=== PATIENT | female | born 1930 | race Caucasian/White ===

== ENCOUNTER 2017-11-15 10:16 | Observation (INO) | payer MEDICARE ==
[2017-11-15] MEDS ORDERED: cloNIDine 0.1 MG TAB ONE (10:42)
[2017-11-15 11:01] LABS: #Eosinphils 0.1 thou/uL (0.0-0.7); #Lymphocytes 1.5 thou/uL (1.20-3.40); #Monocytes 0.5 thou/uL (0.11-0.59); #Neutrophils 4.1 thou/uL (1.40-6.50); %Basophils 0.3 % (0.0-1.0); %Eosinophils 1.7 % (0.0-10.0); %Lymphocytes 24.4 % (21.0-51.0); %Monocytes 7.9 % (0.0-10.0); %Neutrophils 65.8 % (42.0-75.0); Hemoglobin 13.3 g/dL (12.0-16.0); Mean Corpuscular Hemoglobin 30.3 pg (27.0-31.0); Mean Corpuscular Volume 89.1 fl (81.0-99.0); Mean Platelet Volume 8.6 fL (7.4-10.4); Platelet Count 141 thou/uL (130-400); RBC Distribution Width 11.8 % (11.5-14.5); Red Blood Cell (RBC) Count 4.39 mill/uL (4.20-5.40); White Blood Cell (WBC) Count 6.2 thou/uL (4.8-10.8)
--- NOTE | 2017-11-15 11:02 | CT ---
CT HEAD NONCONTRAST: History Altered mental status. Vision abnormality. COMPARISON: 10/18/15. FINDINGS: There is no evidence of acute intracranial hemorrhage or infarct. Mild chronic ischemic small vessel disease is apparent within the periventricular white matter of each cerebral hemisphere. No mass ef fect or shift of midline structures. Visualized paranasal sinuses remain well aerated. IMPRESSION: No acute intracranial abnormalities are demonstrated on noncontrast CT head. POS: [facility]
[2017-11-15 11:26] LABS: ALT (SGPT) 17 U/L (8-55); AST (SGOT) 26 U/L (5-34); Alkaline Phosphatase 85 U/L (40-150); Anion Gap 12 mmol/L (10-20); BUN (Urea Nitrogen) 19 mg/dL (9.8-20.1); Calc. Creatinine Clearance 0 mL/min (70-130); Calcium 9.6 mg/dL (7.8-10.44); Carbon Dioxide 24 mmol/L (23-31); Chloride 107 mmol/L (98-107); Estimated GFR-MDRD 48; Globulin 2.7 g/dL (2.4-3.5); Glucose 125 mg/dL (83-110); Potassium 4.4 mmol/L (3.5-5.1); Protein, Total 6.7 g/dL (6.0-8.3); Sodium 139 mmol/L (136-145)
[2017-11-15 11:30] LABS: CKMB 1.6 ng/mL (0-6.6); Troponin I 0.054 ng/mL (< 0.028)
--- NOTE | 2017-11-15 11:31 | RAD ---
CHEST 1 VIEW: HISTORY: Dyspnea. Altered mental status. FINDINGS: No comparison. Cardiac silhouette is enlarged. Pulmonary vasculature unremarkable. Mediastinum mid line. No lobar consolidation or evidence of pneumothorax. Marked elevation of right humeral head. air sampling and monitoring leads overlie the chest. Rightward convex curvature thoracic spine. Radiopaque sten t over the aortic valve. IMPRESSION: 1. Cardiomegaly. 2. Chronic rotator cuff tear right shoulder. POS: [facility]
[2017-11-15] MEDS ORDERED: Senokot 8.6 MG TAB PO PRN (12:36)
[2017-11-15] MEDS ORDERED: Acetaminophen 325 MG TAB PO PRN (12:36)
[2017-11-15] MEDS ORDERED: Guaifenesin DM 100-10/5 ML UDCUP PO PRN (12:36)
[2017-11-15] MEDS ORDERED: Sodium Chloride 0.9% 1,000 ML IV SCH (13:45)
[2017-11-15 13:51] VITALS: BMI 27.4
[2017-11-15] MEDS: Nitroglycerin 2% Ointment 1 INCH/1 GM Packet TOP SCH ×2 (14:08→20:21)
[2017-11-15 14:41] LABS: Troponin I 0.052 ng/mL (< 0.028)
[2017-11-15] MEDS ORDERED: ALPRAZolam 1 MG TAB PO SCH (14:45)
[2017-11-15] MEDS ORDERED: NIFEdipine XL 60 MG TAB PO SCH (14:45)
--- NOTE | 2017-11-15 16:15 | HP ---
PRIMARY CARE PHYSICIAN: Dr. Valdez. PRIMARY DENTAL MECHANIC: Dr. Jere Alvarez. REASON FOR ADMISSION: Hypertensive urgency, demand ischemia. HISTORY OF PRESENT ILLNESS: The patient gives history of having visual disturbance when she tried to move from her computer desk. She also felt dizzy and weak. This happened around 9:00 p.m. yesterday. She almost fell out of chair, but didn't get injured. She started using her cane. She thought she might fall. As she was ambulating in the room overnight, the patient's cane fell and she tried to reach out for it and she fell and accidentally lacerated her left forearm. This morning when she woke up around 6:30, she still had visual disturbance including double vision. She was not feeling right. Initially, she thought after she has a good sleep, she might feel better on the morning, but did not feel so. She called her friend around 9:00 a.m., who checked her blood pressure, it was very high. The friend finally summoned EMS and the patient was brought to the emergency room here. Currently, has no double vision in the ER, but still has some blurry vision. No chest pain, palpitation, PND or orthopnea. The patient states she might not have hydrated well yesterday. 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 No complaints of urinary burning or frequency. Has no complaints of diarrhea. No complaints of fever, cough, or expectoration. PAST MEDICAL AND SURGICAL HISTORY: Has had a coronary artery stent placed in and had TAVR at the same setting in [place], hypertension, dyslipidemia, left breast cyst removed in , right knee replacement, and hemorrhoidectomy. CURRENT MEDICATIONS: The patient takes Coreg 6.25 mg twice daily, Lasix 20 mg daily, losartan 50 mg daily, potassium chloride 10 mEq p.o. daily, aspirin 81 mg daily, atorvastatin 20 mg daily, Colace 100 mg daily, Centrum Silver 1 tab once daily. ALLERGIES: No known drug allergies. PERSONAL HISTORY: Does not abuse alcohol or drugs. No history of smoking. FAMILY HISTORY: The patient has outlived all her siblings. Mom at the age of 78 years. She has had history of stroke, heart failure, and unknown cancer. Father at the age of 85 years, has 2 children, 65 and 63 years old. CODE STATUS: FULL. Power of mold bunch trimmer is her son, Mr. Bryant. The number to reach is [phone]. REVIEW OF SYSTEMS: The following complete review of systems was negative, unless otherwise mentioned in the HPI or below: Constitutional: Weight loss or gain, ability to conduct usual activities. Skin: Rash, itching. Eyes: Double vision, pain. ENT/Mouth: Nose bleeding, neck stiffness, pain, tenderness. Cardiovascular: Palpitations, dyspnea on exertion, orthopnea. Respiratory: Shortness of breath, wheezing, cough, hemoptysis, fever or night sweats. Gastrointestinal: Poor appetite, abdominal pain, heartburn, nausea, vomiting, constipation, or diarrhea. Genitourinary: Urgency, frequency, dysuria, nocturia. Musculoskeletal: Pain, swelling. Neurologic/Psychiatric: Anxiety, depression. Allergy/Immunologic: Skin rash, bleeding tendency. PHYSICAL EXAMINATION: GENERAL: The patient is an 87-year-old female, who is currently not in any acute distress. VITAL SIGNS: Blood pressure on arrival was 203/101, pulse 66 per minute, respiratory rate 18 per minute, temperature 98.1 degrees Fahrenheit, saturating 98% on room air. NECK: Supple, no elevated JVD. HEENT: Extraocular muscles intact. Pupils reacting to light. Oral cavity, mucous membranes are dry. No exudates or congestion. CARDIOVASCULAR: S1, S2 heard. Regular rhythm. RESPIRATORY: Air entry 1+ bilaterally. No rales or rhonchi. ABDOMEN: Soft, bowel sounds heard. No tenderness, rigidity or guarding. EXTREMITIES: No peripheral edema or calf tenderness. VASCULAR SYSTEM: Peripheral pulses 1+ bilateral. No ischemic ulcerations or gangrene. CENTRAL NERVOUS SYSTEM: No gross focal deficits seen. The patient is alert, awake, oriented well. PSYCHIATRIC: The patient's mood is euthymic. No hallucinations or delusions. LABORATORY AND X-RAY FINDINGS: Chest x-ray done shows mild cardiomegaly, otherwise no acute infiltrate, has chronic rotator cuff tear in the right shoulder. CT brain done shows no acute intracranial abnormalities. BUN 19, creatinine 1.0. Serum glucose 125. Troponin I 0.05, CK-MB 1.6. BNP 155, albumin is 4.0. Electrolytes are stable. White count of 6, H&H 13 and 39, platelet count 141 with 65% neutrophils, MCV is 89. EKG done shows sinus rhythm at 62 beats per minute. There is bifascicular block with frequent PVCs. QRS duration is 146 milliseconds. CLINICAL IMPRESSION AND PLAN: The patient will be under observation on telemetry for hypertensive urgency with visual symptoms, likely might have orthostatic hypotension as well. We will obtain orthostatic blood pressures. We will continue her on full dose aspirin. Home dose Lipitor, Coreg, Cozaar, and also place her on nitroglycerin half an inch q.8 hourly. She will be gently hydrated with normal saline at 70 mL per hour. If the patient were to remain hemodynamically stable and her visual symptoms resolved by morning, she can be safely discharged home. The patient has an outpatient cement side laster and can follow up with Dr. Jere Alvarez in 2 weeks after discharge. We will continue to closely monitor her for any hemodynamic compromise. REGAN
[2017-11-15 17:48] LABS: Troponin I 0.045 ng/mL (< 0.028)
[2017-11-15] MEDS: Carvedilol 6.25 MG TAB PO SCH (18:09)
[2017-11-15] MEDS ORDERED: Atorvastatin Calcium 20 MG TAB PO SCH (21:00)
[2017-11-16 04:45] LABS: #Basophils 0.1 thou/uL (0.0-0.2); #Eosinphils 0.1 thou/uL (0.0-0.7); #Monocytes 0.6 thou/uL (0.11-0.59); #Neutrophils 4.2 thou/uL (1.40-6.50); %Basophils 0.8 % (0.0-1.0); %Eosinophils 2.1 % (0.0-10.0); %Lymphocytes 28.9 % (21.0-51.0); %Monocytes 8.5 % (0.0-10.0); %Neutrophils 59.7 % (42.0-75.0); Hemoglobin 13.7 g/dL (12.0-16.0); Mean Corpuscular HGB CONC 32.9 g/dL (32.0-36.0); Mean Corpuscular Hemoglobin 29.9 pg (27.0-31.0); Mean Platelet Volume 8.6 fL (7.4-10.4); Platelet Count 145 thou/uL (130-400); RBC Distribution Width 11.9 % (11.5-14.5); Red Blood Cell (RBC) Count 4.58 mill/uL (4.20-5.40)
[2017-11-16 05:18] LABS: Anion Gap 9 mmol/L (10-20); BUN (Urea Nitrogen) 16 mg/dL (9.8-20.1); Calc. Creatinine Clearance 54 mL/min (70-130); Calcium 9.4 mg/dL (7.8-10.44); Carbon Dioxide 26 mmol/L (23-31); Chloride 110 mmol/L (98-107); Estimated GFR-MDRD 63; Glucose 104 mg/dL (83-110); Potassium 3.9 mmol/L (3.5-5.1); Sodium 141 mmol/L (136-145)
[2017-11-16] MEDS: Nitroglycerin 2% Ointment 1 INCH/1 GM Packet TOP SCH (05:32)
[2017-11-16] MEDS: Carvedilol 6.25 MG TAB PO SCH (07:21)
[2017-11-16 07:33] VITALS: BP 144/73; TEMP 97.6
[2017-11-16] MEDS ORDERED: Losartan 25 MG TAB PO SCH (09:00)
[2017-11-16] MEDS ORDERED: Aspirin 325 MG TAB PO SCH (09:00)
[2017-11-16] MEDS ORDERED: NIFEdipine XL 30 MG TAB PO SCH (09:00)
[2017-11-16] MEDS ORDERED: Enoxaparin Sodium 40 MG/0.4 ML SYRINGE SC SCH (09:00)
[2017-11-16] MEDS ORDERED: Famotidine 20 MG TAB PO SCH (09:00)
--- NOTE | 2017-11-16 10:12 | PDOC.PN ---
- Subjective Encounter Start Date: 11/16/17 Encounter Start Time: 07:30 Subjective: no chest pain, sob, palp or any weakness -: vision is back to normal -: is amb in room with no dizziness - Objective Resuscitation Status: Resuscitation Status DNR:Do Not Resuscitate MAR Reviewed: Yes Vital Signs & Weight: Vital Signs (12 hours) Temp Pulse Resp BP BP BP Pulse Ox 11/16/17 08:01 58 L 11/16/17 07:32 97.6 F 58 L 18 144/73 H 96 11/16/17 07:21 189/79 H 11/16/17 07:09 97.7 F 70 16 11/16/17 04:44 70 159/70 H 11/16/17 04:00 97.7 F 69 18 189/79 H 95 Weight Weight 164 lb 12.8 oz I&O: 11/15/17 11/16/17 11/17/17 06:59 06:59 06:59 Intake Total 1662 Output Total 2350 300 Balance -688 -300 Result Diagrams: 11/16/17 04:15 11/16/17 04:15 Phys Exam - Physical Examination HEENT: PERRLA, moist MMs Neck: no JVD, supple Respiratory: no wheezing, no rales Cardiovascular: RRR, no significant murmur Gastrointestinal: soft, non-tender, positive bowel sounds Musculoskeletal: no edema, pulses present Neurological: non-focal, moves all 4 limbs Psychiatric: normal affect, A&O x 3 Dx/Plan (1) Hypertensive urgency Code(s): I16.0 - HYPERTENSIVE URGENCY Status: Resolved (2) Dizziness Code(s): R42 - DIZZINESS AND GIDDINESS Status: Resolved (3) Diplopia Code(s): H53.2 - DIPLOPIA Status: Resolved (4) Dyslipidemia Code(s): E78.5 - HYPERLIPIDEMIA, UNSPECIFIED Status: Chronic (5) Demand ischemia of myocardium Code(s): I24.8 - OTHER FORMS OF ACUTE ISCHEMIC HEART DISEASE Status: Acute (6) h/o tavr Status: Chronic (7) CAD (coronary artery disease) Code(s): I25.10 - ATHSCL HEART DISEASE OF [place] CORONARY ARTERY W/O ANG PCTRS Status: Chronic Qualifiers: Coronary Disease-Associated Artery/Lesion type: [place] artery [place] vs. transplanted heart: [place] heart Comment: prior h/o stent in 2016, f/u with - Plan htn is controlled on current meds -: she will f/u with in 2 weeks -: dc pt home * .
--- NOTE | 2017-11-17 12:15 | DIS ---
DATE OF ADMISSION: 11/15/2017 DATE OF DISCHARGE: 11/16/2017 DISCHARGE DISPOSITION: To home. PRIMARY DISCHARGE DIAGNOSES: Hypertensive urgency, resolved; dizziness and diplopia, both resolved; demand ischemia, stable. SECONDARY DISCHARGE DIAGNOSES: Coronary artery disease, dyslipidemia, history of transcatheter aortic valve replacement. PROCEDURES DONE DURING HOSPITALIZATION: CT brain done on the day of admission showed no acute intracranial abnormalities. Chest x-ray done showed mild cardiomegaly. Otherwise, no acute infiltrate. H&H 13 and 41, platelet count 145,000 with 59% neutrophils. White count of 7. Troponin I was indeterminate, peaking up to 0.05. CK-MB 1.6. BNP 155, BUN 16, creatinine 0.8. DISCHARGE MEDICATIONS: Aspirin 81 mg p.o. daily, atorvastatin 20 mg p.o. at bedtime, Coreg 6.25 mg twice daily, Colace 100 mg daily, Lasix 20 mg p.o. q.a.m. , losartan 50 mg p.o. daily, Procardia XL 30 mg p.o. daily, it is a new tablet, potassium chloride 10 mEq p.o. daily. ALLERGIES: No known drug allergies. DISCHARGE PLAN: The patient to follow up with Dr. Alvarez, her template clerk in 2 weeks and primary care physician in 1 week. The patient also needs to check her blood pressure and pulse twice daily and record on a sheet of paper to follow up with primary care physician in 1 week. BRIEF COURSE DURING HOSPITALIZATION: The patient initially got admitted on the with complaints of visual disturbance, diplopia, feeling dizzy and weak. On arrival in ER, the patient had blood pressures of 203/101. She was essentially admitted for hypertensive urgency with visual symptoms, dizziness and weakness. The patient was also mildly dehydrated and was given 1 liter of IV fluid. Her orthostatic blood pressures were within normal limits. She follows up with Dr. Jere Alvarez closely and has had a stress test as well recently per the patient. She does not recall the exact date and time. In view of this, she has been advised to follow up with Dr. Alvarez in 2 weeks. She has had indeterminate cardiac enzymes, likely due to demand ischemia from hypertensive urgency. She was placed on Procardia XL 30 mg daily and her blood pressures are fairly stable. She has been advised to check blood pressure and pulse and record for a period of 10 days to follow up with primary care physician and Dr. Jere Alvarez. She is hemodynamically stable this morning with no dizziness, weakness or visual symptoms. She is ambulating in the hallway and will be shortly discharged home. Please see a [id number] documentation on [facility] for the day of discharge. REGAN
== END 2017-11-16 08:27 | disposition home or self-care (01) ==
LOC: ERS 10:16 → 2SW 13:25
PROVIDERS: ADMIT Internal Medicine; ATTEND Internal Medicine
DX: I16.0 Hypertensive urgency (principal); R42 Dizziness and giddiness; H53.2 Diplopia; E86.0 Dehydration; I24.8 Other forms of acute ischemic heart disease; I10 Essential (primary) hypertension; E78.5 Hyperlipidemia, unspecified; I25.10 Atherosclerotic heart disease of native coronary artery without angina pectoris; Z79.82 Long term (current) use of aspirin; Z79.899 Other long term (current) drug therapy; Z95.5 Presence of coronary angioplasty implant and graft; Z95.2 Presence of prosthetic heart valve
CPT/HCPCS: 70450; 71045; 80048; 80053; 82553; 83880; 84484 ×2; 85025 ×2; 93005; 96360; 96361 ×2; 99285; G0378; 36415; J1650